=== PATIENT | male | born 1945 | race Caucasian/White ===

== ENCOUNTER → 2017-04-29 07:59 | Outpatient (CLI) | payer OTHER ==
[2015-09-16 09:09] VITALS: BMI 30.4
--- NOTE | ~2017-04-29 | EC ---
PATIENT:MARY REYES JR DATE OF SERVICE: 04/29/17 SEX: M MEDICAL RECORD: [id number] DATE OF : 47 [facility]ATION[facility] AGE OF PATIENT: 71 ADMISSION DATE: 04/29/17 REFERRING PHYSICIAN: INTERPRETING PHYSICIAN: MACHELLE VALLECILLO MD ECHOCARDIOGRAM REPORT ECHO CHARGES 4 ECHO COMPLETE CLINICAL DIAGNOSIS: IRREGULAR HEART BEAT/AFIB ECHOCARDIOGRAPHIC MEASUREMENTS (adult normal given) AC root (d.<3.7cm) 4.4 cm LV Septum d (<1.2 cm> 1.5 cm Valve Excursion 2.2 cm LV Septum (systole) 1.9 cm Left Atria (s.<4.0cm> 4.6 cm LVPW d(<1.2cm) 1.6 cm RV (d.<2.3cm) 4.8 cm LVPW (sytole) 2.0 cm LV diastole(<5.6CM) 5.5 cm MV E-F(>70mm/sec) cm LV systole 2.8 cm LVOT Diameter 2.0 cm MV exc.(>10mm) 2.2 cm Est.ejection fraction (50-75%) % Pericardial Effusion N DOPPLER: LVIT cm/sec A 79.0 cm/sec E 45.0 cm/sec LA cm/sec RVSP 33 mmHg LVOT 91 cm/sec AOP1/2T m/s Asc. Ao 99 cm/sec RVOT 80 cm/sec RA cm/sec PA 118 cm/sec AV Gradient Peak 3.92 mmHg AV Mean 2.0 mmHg AV Area 3.3 cm MV Gradient Peak 1.82 mmHg MV Mean 0.69 mmHg MV Area cm COMMENTS: Ship Manager: Marita SY Pizza Maker: 2 Dr. Johnson TAPE# PACS DATE OF SERVICE: 04/29/2017 FINDINGS: 1. Left ventricular chamber size is within normal limits. Left ventricular systolic function is normal. Overall ejection fraction estimated at 55%. 2. Left atrium is enlarged at 4.6 cm. Right atrium and right ventricular chamber sizes are as well mildly dilated. 3. Valvular structures have normal structure and motion. 4. Doppler interrogation reveals mild mitral regurgitation, mild tricuspid regurgitation, no other valvular insufficiency or stenosis. Pulmonary systolic ECHOCARDIOGRAM REPORT [id number] MARY REYES JR pressure is preserved at 33 mmHg. 5. No evidence of pericardial effusion or left ventricular thrombus. 6. The patient is in atrial fibrillation during the study. TRANSINT:[id number] Voice Confirmation ID: [id number] DOCUMENT ID: [id number] MACHELLE VALLECILLO MD CC: [id number] DICTATION DATE: 04/30/17 1005 INTERNATIONAL TRADE ANALYST: 04/30/171947 DEP CLI 04/29/17 1910 [place] [id number]
[~2017-04-29 07:59] MED LIST: FOLATE0.4 MG PO; LIPITOR20 MG PO; PRADAXA150 MG PO; VITAMIN B-121000 MCG PO; ZYLOPRIM300 MG PO
== END | disposition home or self-care (01) ==
LOC: D.ECHO 07:59
DX: I49.9 Cardiac arrhythmia, unspecified (principal); I48.91 Unspecified atrial fibrillation